=== PATIENT | male | born 1995 | race African-American/Black ===

== ENCOUNTER 2021-09-01 08:46 | Emergency (ER) | payer SELFPAY ==
[2021-09-01] MEDS ORDERED: Acetaminophen 500 MG TAB ONE (09:52)
[2021-09-01] MEDS ORDERED: Ibuprofen 200 MG TAB ONE (09:54)
== END 2021-09-01 10:08 | disposition home or self-care (01) ==
LOC: CSHERS 08:46
DX: R07.9 Chest pain, unspecified (principal); F17.210 Nicotine dependence, cigarettes, uncomplicated
CPT/HCPCS: 71045; 93005

== ENCOUNTER 2021-09-03 02:35 | Emergency (ER) | payer SELFPAY ==
[2021-09-03 03:06] LABS: #Basophils 0.1 10x3/uL (0.0-0.2); #Eosinphils 0.2 10x3/uL (0.0-0.5); #Neutrophils 11.8 10x3/uL (1.5-8.4); %Basophils 0.6 % (0.0-2.0); %Eosinophils 1.2 % (0.0-6.0); %Lymphocytes 7.7 % (18.0-47.0); %Monocytes 7.2 % (0.0-10.0); %Neutrophils 82.5 % (40.0-75.0); Hemoglobin 16.2 g/dL (13.5-17.5); Mean Corpuscular HGB CONC 34.8 g/dL (32.0-36.0); Mean Corpuscular Hemoglobin 30.5 pg (27.0-33.0); Mean Corpuscular Volume 87.6 fl (81.2-95.1); Mean Platelet Volume 9.4 fl (7.4-10.4); Platelet Count 247 10x3/uL (150-450); RBC Distribution Width 13.9 % (11.5-14.5); Red Blood Cell (RBC) Count 5.31 10x6/uL (4.32-5.72); White Blood Cell (WBC) Count 14.2 10x3/uL (3.5-10.5)
[2021-09-03 03:21] LABS: ALT (SGPT) 47 U/L (8-55); AST (SGOT) 41 U/L (5-34); Albumin 5.1 g/dL (3.5-5.0); Alkaline Phosphatase 85 U/L (40-110); Anion Gap 21 mmol/L (10-20); BUN (Urea Nitrogen) 18 mg/dL (8.9-20.6); Bilirubin, Total 2.1 mg/dL (0.2-1.2); CK (CPK) 664 U/L (30-200); Calc. Creatinine Clearance 0 mL/min (70-130); Carbon Dioxide 25 mmol/L (22-29); Chloride 95 mmol/L (98-107); Globulin 3.3 g/dL (2.4-3.5); Glucose 98 mg/dL (70-105); Magnesium 1.4 mg/dL (1.6-2.6); Protein, Total 8.4 g/dL (6.0-8.3); Sodium 138 mmol/L (136-145)
[2021-09-03] MEDS ORDERED: Magnesium 2 GM/50 ML BAG (IN WATER) ONE (03:42)
[2021-09-03] MEDS ORDERED: Potassium Chloride 20 MEQ TAB ONE (03:42)
[2021-09-03 05:32] LABS: Anion Gap 18 mmol/L (10-20); BUN (Urea Nitrogen) 16 mg/dL (8.9-20.6); Calc. Creatinine Clearance 0 mL/min (70-130); Calcium 8.7 mg/dL (7.8-10.44); Carbon Dioxide 23 mmol/L (22-29); Chloride 100 mmol/L (98-107); Glucose 85 mg/dL (70-105); Potassium 3.6 mmol/L (3.5-5.1); Sodium 137 mmol/L (136-145)
== END 2021-09-03 05:38 | disposition home or self-care (01) ==
LOC: CSHERS 02:35
DX: T67.5XXA Heat exhaustion, unspecified, initial encounter (principal); E86.0 Dehydration; E87.6 Hypokalemia; E83.42 Hypomagnesemia
CPT/HCPCS: 36415; 80053; 82550; 83735; 85025; 96365; 96366; J3475